=== PATIENT | female | born 1975 | race Caucasian/White ===

== ENCOUNTER 2019-12-12 17:58 | Observation (INO) ==
[2019-12-12] MEDS ORDERED: WATER FOR INJ IR ONE (18:14)
[2019-12-12] MEDS ORDERED: TRANEXAMIC ACID IR ONE (18:14)
[2019-12-12] MEDS ORDERED: Water for inj. (sterile) 10 ML ONE (18:16)
[2019-12-12] MEDS: 0.9 % Sodium Chloride 1,000 ML IVC ONE ×3 (18:19→18:58)
[2019-12-12 18:33] LABS: Basophils # 0.1 K/mcL (0.0-0.2); Basophils % 0.3 %; Eosinophils # 0.3 K/mcL (0.0-0.6); Eosinophils % 2.1 %; Hematocrit 45.7 % (35.3-44.9); Hemoglobin 14.3 g/dL (11.5-15.4); Immature Granulocytes % 0.3 % (0-4); Lymphocytes # 2.9 K/mcL (0.6-4.6); Lymphocytes % 20.2 %; Mean Corpuscular HGB Conc 31.3 g/dL (31.6-35.5); Mean Corpuscular Hemoglobin 29.4 pg (28.0-33.3); Mean Corpuscular Volume 93.8 fL (83.0-100.0); Mean Platelet Volume 9.5 fL (9.4-12.4); Monocytes # 1.2 K/mcL (0.0-1.3); Monocytes % 8.1 %; Platelet Count 324 K/mcL (140-400); Red Blood Count 4.87 M/mcL (3.82-4.97); Red Cell Distribution Width 11.9 % (11.5-14.5); White Blood Count 14.4 K/mcL (4.3-11.1)
[2019-12-12] MEDS ORDERED: 0.9 % Sodium Chloride 1,000 ML IVC ONE (18:34)
[2019-12-12 18:41] LABS: Prothrombin Time 11.7 Seconds (9.4-12.1)
[2019-12-12 18:44] LABS: Activated Partial Thrombo Time 28.9 Seconds (26.0-36.0)
[2019-12-12 18:55] LABS: Alanine Aminotransferase 10 Units/L (7-52); Albumin 4.1 g/dL (3.5-5.7); Albumin/Globulin Ratio 1.3 (1.1-2.2); Alkaline Phosphatase 74 Units/L (34-104); Aspartate Amino Transferase 10 Units/L (13-39); BUN/Creatinine Ratio 13 (6-26); Bilirubin,Direct 0.1 mg/dL (0.0-0.2); Bilirubin,Indirect 0.4 mg/dL (0.0-1.0); Bilirubin,Total 0.5 mg/dL (0.3-1.0); Blood Urea Nitrogen 12 mg/dL (6-20); Calcium 9.5 mg/dL (8.6-10.3); Carbon Dioxide 21 mEq/L (23-29); Chloride 107 mEq/L (98-107); Globulin 3.1 g/dL (2.4-3.5); Glucose 101 mg/dL (70-105); Lipase 18 Units/L (11-82); Osmolality,Calculated 292 (280-300); Potassium 3.4 mEq/L (3.5-5.1); Sodium 141 mEq/L (136-145); Total Protein 7.2 g/dL (6.4-8.9); eGFR For African Americans > 60 (> 60); eGFR For Non-African Americans > 60 (> 60)
[2019-12-12 18:56] LABS: Troponin I < 0.03 ng/mL (< 0.04)
[2019-12-12] MEDS ORDERED: *HR* Promethazine 25 MG/ML VIAL IVP PRN (19:21)
[2019-12-12] MEDS ORDERED: *HR* HYDROmorphone PF 0.5 MG/0.5 ML SYRINGE IVP PRN (19:21)
[2019-12-12] MEDS ORDERED: Ondansetron 4 MG/2 ML VIAL IVP ONE (19:21)
[2019-12-12] MEDS ORDERED: *HR* FentaNYL (PF) 100 MCG/2 ML VIAL ONE ×2 (19:24→20:06)
[2019-12-12] MEDS ORDERED: *HR* Succinylcholine 200 MG/10 ML VIAL IVP ONE (19:24)
[2019-12-12] MEDS ORDERED: Lidocaine -MPF 2% 2 ML VIAL ONE (19:24)
[2019-12-12] MEDS ORDERED: Lidocaine -MPF 4% 5 ML AMPUL ONE (19:24)
[2019-12-12] MEDS ORDERED: Bupivacaine/EPI 1:200k 0.25%PF 10 ML VIAL INFILT ONE (19:28)
[2019-12-12] MEDS ORDERED: Silver Nitrate Applicator 1 STICK..EA. TP ONE (19:28)
[2019-12-12] MEDS ORDERED: Famotidine 20 MG/2 ML VIAL ONE (19:30)
[2019-12-12] MEDS ORDERED: Metoclopramide 10 MG/2 ML VIAL ONE (19:30)
[2019-12-12] MEDS ORDERED: Acetaminophen IV 1,000 MG/100 ML BAG ONE (19:30)
[2019-12-12] MEDS ORDERED: *HR* Rocuronium Bromide 50 MG/5 ML VIAL ONE (19:47)
[2019-12-12] MEDS ORDERED: Dexamethasone 4 MG/ML VIAL ONE (20:13)
[2019-12-12] MEDS ORDERED: Ondansetron 4 MG/2 ML VIAL ONE (20:13)
[2019-12-12] MEDS ORDERED: Ringers Solution, Lactated 1,000 ML ONE (21:28)
[2019-12-12] MEDS ORDERED: Naloxone 0.4 MG/ML INJ IVP PRN (21:52)
[2019-12-12] MEDS ORDERED: Isovue-370 500 ML BOTTLE IVP ONE (21:52)
[2019-12-12] MEDS ORDERED: 0.9 % Sodium Chloride 1,000 ML IVC SCH (21:52)
[2019-12-12] MEDS ORDERED: *HR* HYDROmorphone (PF) 1 MG/ML SYRINGE IVP PRN (21:52)
[2019-12-12] MEDS ORDERED: Ondansetron 4 MG/2 ML VIAL IVP PRN (21:52)
[2019-12-13 08:35] VITALS: BP 152/98
[2019-12-13 08:45] LABS: Basophils % 0.1 %; Hematocrit 39.7 % (35.3-44.9); Hemoglobin 12.7 g/dL (11.5-15.4); Immature Granulocytes % 0.4 % (0-4); Lymphocytes # 1.6 K/mcL (0.6-4.6); Lymphocytes % 11.5 %; Mean Corpuscular Hemoglobin 28.9 pg (28.0-33.3); Mean Corpuscular Volume 90.4 fL (83.0-100.0); Mean Platelet Volume 9.5 fL (9.4-12.4); Monocytes # 0.5 K/mcL (0.0-1.3); Monocytes % 3.8 %; Neutrophils # 11.5 K/mcL (1.6-8.9); Platelet Count 383 K/mcL (140-400); Red Blood Count 4.39 M/mcL (3.82-4.97); Red Cell Distribution Width 11.9 % (11.5-14.5); Segmented Neutrophils % 84.2 %; White Blood Count 13.6 K/mcL (4.3-11.1)
== END 2019-12-13 09:52 | disposition home health service (06) ==
LOC: 1NENUPED 17:58 → EMEROOARM 17:58 → 1NENUPED 19:41
PROVIDERS: ADMIT Obstetrics & Gynecology; ATTEND Obstetrics & Gynecology